=== PATIENT | male | born 1975 | race Caucasian/White ===

== ENCOUNTER 2016-07-30 19:12 | Emergency (ER) | payer SELFPAY ==
[~2016-07-30] VITALS: Ht 165.1 cm; Wt 68.0 kg
[2016-07-30] MEDS ORDERED: PROPARACAINE HCL 0.5% 15 ML OPHTHALMIC SOLUTION OD ONE (21:00)
[2016-07-30 22:15] VITALS: BP 129/81
[2016-07-30] MEDS ORDERED: ERYTHROMYCIN 0.5% 3.5 GM TUBE OPHTHALMIC OINTMENT OD ONE (22:45)
== END 2016-07-30 23:26 | disposition home or self-care (01) ==
LOC: EMS 19:14
DX: T15.11XA Foreign body in conjunctival sac, right eye, initial encounter (principal); X58.XXXA Exposure to other specified factors, initial encounter; Y93.89 Activity, other specified; Y92.89 Other specified places as the place of occurrence of the external cause; Y99.8 Other external cause status
CPT/HCPCS: 99283